=== PATIENT | female | born 1940 | race Caucasian/White ===

== ENCOUNTER → 2019-07-29 11:07 | Outpatient (BNVA) | payer MEDICARE, MEDICAID, SELFPAY | PROVIDERS: Family Provider Family Medicine; PCP Family Medicine; Visit Provider Internal Medicine Rheumatology | DX: M05.79 Rheumatoid arthritis with rheumatoid factor of multiple sites without organ or systems involvement (principal); Z79.899 Other long term (current) drug therapy; Z11.59 Encounter for screening for other viral diseases; Z11.1 Encounter for screening for respiratory tuberculosis; Z72.89 Other problems related to lifestyle | CPT/HCPCS: 36415; 80076; 82565; 85025; 85651; 86140; 86480; 86704; 86803; 87340 ==

== ENCOUNTER → 2019-07-29 11:37 | Outpatient (BNVA) | payer MEDICARE, MEDICAID, SELFPAY | PROVIDERS: Family Provider Family Medicine; PCP Family Medicine | DX: M05.79 Rheumatoid arthritis with rheumatoid factor of multiple sites without organ or systems involvement (principal); Z79.899 Other long term (current) drug therapy | CPT/HCPCS: 85025 ==

== ENCOUNTER 2019-09-24 11:12 | Outpatient (CLI) | payer MEDICARE, MEDICAID, SELFPAY ==
--- NOTE | 2019-09-24 11:46 | XR_ITS ---
WS: [id number] PROCEDURE: XR chest 2V* [id number] CLINICAL INFORMATION: POSITIVE TB TEST, NONSPECIFIC REACTION TO TUBERCULIN SKIN TE COMPARISON: March 08, 2015 FINDINGS: Heart: Cardiomegaly. Aortic calcification. Lungs: Moderate chronic emphysematous changes. No acute pulmonary infiltrates. No focal pneumonia. Bones: Advanced thoracic kyphosis with disc space narrowing in the mid thoracic spine. Thoracolumbar scoliosis. XR/XR chest 2V* [id number] IMPRESSION: 1. Advanced chronic emphysematous changes. No acute pulmonary infiltrates. 2. Thoracolumbar scoliosis with kyphosis. 3. Stable cardiomegaly.
== END 2019-09-24 11:13 | disposition home or self-care (01) ==
LOC: RADWPI 11:19
PROVIDERS: Family Provider Family Medicine; PCP Family Medicine; Visit Provider Family Medicine
DX: R76.11 Nonspecific reaction to tuberculin skin test without active tuberculosis (principal); J43.8 Other emphysema; I51.7 Cardiomegaly; M40.295 Other kyphosis, thoracolumbar region
CPT/HCPCS: 71046

== ENCOUNTER → 2019-12-09 09:53 | Outpatient (BNVA) | payer MEDICARE, MEDICAID, SELFPAY | PROVIDERS: Family Provider Family Medicine; PCP Family Medicine; Visit Provider Internal Medicine | DX: M06.9 Rheumatoid arthritis, unspecified (principal); M81.0 Age-related osteoporosis without current pathological fracture; M85.80 Other specified disorders of bone density and structure, unspecified site | CPT/HCPCS: 99213 ==

== ENCOUNTER → 2020-05-22 13:20 | Outpatient (BNVA) | payer MEDICARE, MEDICAID, SELFPAY | PROVIDERS: Family Provider Family Medicine; PCP Family Medicine; Visit Provider Internal Medicine | DX: M05.79 Rheumatoid arthritis with rheumatoid factor of multiple sites without organ or systems involvement (principal); M81.0 Age-related osteoporosis without current pathological fracture; Z22.7 Latent tuberculosis; Z87.891 Personal history of nicotine dependence | CPT/HCPCS: 99213; 99214 ==

== ENCOUNTER → 2020-12-19 09:38 | Outpatient (BNVA) | payer MEDICARE, MEDICAID, SELFPAY | PROVIDERS: Family Provider Family Medicine; PCP Family Medicine; Visit Provider Internal Medicine | DX: M06.9 Rheumatoid arthritis, unspecified (principal); M81.0 Age-related osteoporosis without current pathological fracture; R76.12 Nonspecific reaction to cell mediated immunity measurement of gamma interferon antigen response without active tuberculosis; M20.10 Hallux valgus (acquired), unspecified foot; Z87.891 Personal history of nicotine dependence | CPT/HCPCS: 99213; 99214 ==

== ENCOUNTER → 2021-02-04 13:03 | Outpatient (BNVA) | payer MEDICARE, MEDICAID, SELFPAY | PROVIDERS: Family Provider Family Medicine; PCP Family Medicine; Visit Provider Nurse Practitioner Family | DX: N39.0 Urinary tract infection, site not specified (principal) | CPT/HCPCS: 81000; 87077; 87086; 87184 ==

== ENCOUNTER → 2021-04-05 00:01 | Outpatient (BNVA) | payer MEDICARE, MEDICAID, SELFPAY | PROVIDERS: Family Provider Family Medicine; PCP Family Medicine; Visit Provider Emergency Medicine | DX: L03.90 Cellulitis, unspecified (principal) | CPT/HCPCS: 80048; 84550 ==

== ENCOUNTER → 2021-05-01 09:45 | Outpatient (BNVA) | payer MEDICARE, MEDICAID, SELFPAY | PROVIDERS: Family Provider Family Medicine; PCP Family Medicine; Visit Provider Internal Medicine | DX: M05.9 Rheumatoid arthritis with rheumatoid factor, unspecified (principal); M81.0 Age-related osteoporosis without current pathological fracture; R76.12 Nonspecific reaction to cell mediated immunity measurement of gamma interferon antigen response without active tuberculosis; Z79.899 Other long term (current) drug therapy; Z79.1 Long term (current) use of non-steroidal anti-inflammatories (NSAID); Z87.891 Personal history of nicotine dependence | CPT/HCPCS: 99213; 99214 ==

== ENCOUNTER 2021-05-12 11:44 | Emergency (ER) | payer MEDICARE, MEDICAID, SELFPAY ==
[2021-05-12 11:58] VITALS: BP 130/63; PULSE 95; RESP 16; TEMP 37.2; O2SAT 94
--- NOTE | 2021-05-12 12:02 | ED_ITS ---
HPI - URI/Sore Throat General: Chief Complaint: Upper Respiratory Infection Stated Complaint: sore throat; congestion; doesn't feel well Time Seen by Provider: 05/12/21 12:02 History of Present Illness: HPI Narrative: Ms Finn is an 81-year-old lady with history of rheumatoid arthritis and reported history of TB s/p completed treatment who presents to the emergency department due to congestion, cough, and generalized malaise. She reports over the past 6 months she has had recurrent episodes of similar symptoms. She endorses 3-week history of sinus pressure, nasal congestion, sore throat, and dry cough. She has mild associated generalized malaise. No associated fevers, chest pain, shortness of breath. Overall the course of symptoms has persisted and is mildly worsening. She received medications in [place] 2 days ago though she is unsure of what they were and she is felt improved. No other significant changes in health, exacerbating, relieving factors identified. Review of Systems General: Reports: 10 or more systems reviewed and unremarkable except in HPI and below PFSH ED PFSH: Medical History Hypothyroidism Immunosuppression Osteoporosis Rheumatoid arthritis Family History Mother Diabetes Sister Lung disease Rheumatoid arthritis Daughter Chronic kidney disease (CKD) Social History Smoking and tobacco status: former smoker Alcohol intake: former History of recent travel: No Physical Exam Narrative: EXAM NARRATIVE: GENERAL/CONSTITUTIONAL - mildly ill-appearing. Eyes - PERRL, no conjunctival injection ENMT - Sinuses TTP. Atraumatic external nose and ears. Normal pharynx NECK - supple. trachea midline CARDIOVASCULAR - regular rate and rhythm. Peripheral pulses 2+ and equal RESPIRATORY -clear to auscultation bilaterally. No retractions or accessory muscle use. ABDOMEN/GI - Nontender/Nondistended. MSK - Extremities without obvious deformity or tenderness to palpation. Right forearm cast, distal CMS intact. SKIN - Warm, Dry NEURO - alert and appropriately oriented. Moves all extremities equally. Course ED course: - Patient was seen and evaluated by me at bedside - Patient placed on cardiac monitors, IV access obtained - Initial evaluation notable for exam as above -Symptom treatments, as appropriate, ordered - Labs notable for leukocytosis, mild thrombocytosis. Metabolic panel with minimal hypokalemia, oral replenishment ordered. - Imaging notable for no acute finding - Upon serial reexamination after treatment the patient was mildly improved - Based on patient history, evaluation, labs, and imaging as interpreted the most likely cause of the patient's condition is bacterial sinus. - The results of ED evaluation were discussed with the patient including prescriptions and/or symptomatic cares (if applicable) including appropriate and responsible use, followup plan, and return precautions. The patient verbalized understanding and felt safe for discharge. - Patient discharged in satisfactory condition. Vital Signs: Vital signs: Vital Signs Temperature 97.7 F 05/12/21 13:32 Pulse Rate 85 05/12/21 13:32 Respiratory Rate 16 05/12/21 13:32 Blood Pressure 128/81 05/12/21 13:32 Pulse Oximetry 94 05/12/21 13:32 MDM - URI/Sore Throat Medical Records: Attestation: I reviewed the patient's medical records. Lab Data: Attestation: I reviewed the patient's lab results. Labs: Lab Results 05/12/21 12:20 SARS-CoV-2 Ag (Rap id) Negative (Negative) Discharge Plan Discharge Patient Disposition: Home Clinical Impression: Bacterial sinusitis Condition: Stable Prescriptions: No Action bupropion HCl 150 mg tablet extended release 24 hr 150 mg PO QAM RF: 0 glipizide 10 mg tablet 10 mg PO DAILY RF: 0 valsartan [Diovan] 80 mg tablet 80 mg PO DAILY RF: 0 lovastatin 20 mg tablet 20 mg PO DAILY RF: 0 furosemide [Lasix] 20 mg tablet 20 mg PO DAILY RF: 0 loratadine 10 mg tablet 10 mg PO DAILY RF: 0 diclofenac sodium [Voltaren] 1 % gel 2 gm TOPICAL QID Qty: 100 RF: 2 diclofenac sodium [Voltaren] 1 % gel 2 g topical QID Qty: 100 RF: 0 nitrofurantoin macrocrystal 100 mg capsule 100 mg PO BID 7 Days Qty: 14 RF: 0 cephalexin 500 mg capsule 500 mg PO BID RF: 0 cefdinir 300 mg capsule 300 mg PO BID RF: 0 montelukast 10 mg tablet 10 mg PO DAILY RF: 0 prednisone 20 mg tablet 20 mg PO DAILY 5 Days Qty: 5 RF: 0 allopurinol 100 mg tablet 100 mg PO BID Qty: 60 RF: 1 Discharge Orders: Discharge ED (Routine); Ordered 05/12/21 Ordered By: Timoteo Ashley Referrals: Karin Blackwell MD [Primary Care Provider] - Discharge Diet: Usual diet Discharge Activity: Resume usual activity Patient Instructions: Sinusitis (ED) Activity Restrictions/Additional Instructions: Thank you for visiting the emergency department. You were seen and evaluated for congestion, cough, and generalized malaise. The exact cause of your symptoms is unclear though is likely related to a sinusitis. Given duration of symptoms this is likely bacterial. I am unsure of what your previous physician prescribed you and therefore you should stop taking this if it was an antibiotic and start taking the antibiotic I will prescribe. Please follow-up with your primary care provider. Return to the emergency department for worsening symptoms, inability to tolerate oral intake, chest pain, shortness of breath, or anything else that you are concerned about and feel needs emergency department evaluation. Coding Level of Care Code ED [employer]ner for Mack Cabrera
--- NOTE | 2021-05-12 12:08 | XRR_ITS ---
PROCEDURE INFORMATION: Exam: XR Chest Exam date and time: 05/12/2021 12:08 PM Age: 81 years old Clinical indication: Cough TECHNIQUE: Imaging protocol: XR of the chest. Views: 1 view. COMPARISON: CR XR chest 2V* [id number] 09/24/2019 11:56 AM FINDINGS: Lungs: Unremarkable. No consolidation. Pleural spaces: Unremarkable. No pleural effusion. No pneumothorax. Heart/Mediastinum: Unremarkable. No cardiomegaly. Bones/joints: Unremarkable. XR/XR chest 1V portable [id number] IMPRESSION: No acute findings.
[2021-05-12 12:44] LABS: SARS Covid-2 Antigen Negative (Negative)
[2021-05-12] MEDS: amoxicillin-clav 875-125 mg Tablet 1 TAB PO (13:30)
[2021-05-12 13:32] VITALS: BP 128/81; PULSE 85; RESP 16; TEMP 36.5; O2SAT 94
--- NOTE | 2021-05-12 13:37 | PC.NURSE ---
discharged pt to home with son, pt verbalizes understanding of discharge instructions, prescriptions, 1 take home pill and when to follow up, pt ambulated from ED
== END 2021-05-12 13:39 | disposition home or self-care (01) ==
PROVIDERS: Emergency Provider Emergency Medicine; PCP Family Medicine
DX: J32.8 Other chronic sinusitis (principal); Z87.891 Personal history of nicotine dependence; Z20.822 Contact with and (suspected) exposure to COVID-19
CPT/HCPCS: 71045; 87426; 99283

== ENCOUNTER 2021-05-16 12:05 | Emergency (ER) | payer MEDICARE, MEDICAID, SELFPAY ==
[2021-05-16 12:20] VITALS: BP 133/63; PULSE 82; RESP 22; TEMP 36.7; O2SAT 96; BMI 26.6
[2021-05-16 14:30] LABS: Basophils # 0.1 10^3/uL (0.0-0.1); Basophils % 0.7 %; Eosinophils % 6.7 %; Hematocrit 40.9 % (37.0-47.0); Hemoglobin 12.5 g/dL (11.5-15.3); Lymphocytes # 3.6 10^3/uL (0.8-4.8); Lymphocytes % 24.6 %; Mean Corpuscular HGB Conc 30.6 g/dL (30.0-36.0); Mean Corpuscular Hemoglobin 28.7 pg (28.0-34.0); Mean Corpuscular Volume 93.8 fl (81-99); Mean Platelet Volume 9.9 fL (7.4-10.4); Monocytes # 0.8 10^3/uL (0.2-0.9); Monocytes % 5.7 %; Neutrophils # 8.94 10^3/uL (1.8-7.7); Neutrophils % 61.9 %; Nucleated Red Blood Cells % 0 %; Platelet Count 517 10^3/cmm (130-400); Red Blood Count 4.36 10^6/uL (4.1-5.3); Red Cell Distribution Width 14.5 % (12.1-15.1); White Blood Count 14.5 10^3/uL (4.0-10.0)
[2021-05-16 14:50] LABS: Alanine Aminotransferase < 5 U/L (0-33); Albumin Level 3.9 g/dL (3.5-5.2); Alkaline Phosphatase 106 IU/L (35-105); Anion Gap 15.4 (5-19); Aspartate Amino Transferase 13 U/L (0-32); Blood Urea Nitrogen 14 mg/dL (8-23); C Reactive Protein 87.7 mg/L (0.0-4.9); Calcium 9.1 mg/dL (8.5-10.5); Carbon Dioxide 27 mmol/L (22-29); Chloride 100 mmol/L (98-107); Globulin 3.7 g/dL (1.3-4.6); Glucose 95 mg/dL (65-115); Osmolality Calculated 288 mOsm/kg (285-295); Potassium 3.4 mmol/L (3.5-5.1); Sodium 139 mmol/L (136-145); Total Bilirubin 0.2 mg/dL (0.15-1.2); Total Protein 7.6 g/dL (6.6-8.7)
[2021-05-16] MEDS: acetaminophen 500 mg Tablet 1000 MG PO (15:08)
--- NOTE | 2021-05-16 15:12 | PC.NURSE ---
patient given PO tylenol for pain. Registration told per family patient leaving and she doesnt want the head ct , so were just going to go.
== END 2021-05-16 15:10 | disposition left against medical advice (07) ==
PROVIDERS: Physician Assistant; Emergency Provider Family Medicine; PCP Family Medicine
DX: Z53.21 Procedure and treatment not carried out due to patient leaving prior to being seen by health care provider (principal)
CPT/HCPCS: 80053; 85025; 86140; 87040

== ENCOUNTER 2021-06-05 15:08 | Outpatient (CLI) | payer MEDICARE, MEDICAID, SELFPAY ==
--- NOTE | 2021-06-05 15:45 | XR_ITS ---
WS: [id number] SCREENING DEXA SCAN [employer] CLINICAL INFORMATION: M81.0 - Age-related osteoporosis without current patholog... COMPARISON: 2017 FINDINGS: The L1-L4 bone mineral density measures 1.062 g/cm2. This corresponds to a T score score of -1.0 and Z score of 1.0. Left femoral neck bone mineral density measures 0.802 g/cm2. This corresponds to a T score of -1.6 an d Z score of 0.6. Right femoral neck bone mineral density measures 0.777 g/cm2. This corresponds to a T score -1.8of an d Z score of 0.4. Mean femoral neck bone mineral density measures 0.789 g/cm2. This corresponds to a T score of -1.7 an d Z score of 0.5. XR/XR DEXA axial skeleton* [id number] IMPRESSION: Osteopenia lumbar spine. Osteopenia in the femoral necks. Patient's FRAX calculated 10 year probability for major osteoporotic fracture i s 37.5 % and osteoporotic hip fracture is 15.4%.
== END 2021-06-05 15:09 | disposition home or self-care (01) ==
PROVIDERS: PCP Family Medicine; Visit Provider Internal Medicine
DX: M81.0 Age-related osteoporosis without current pathological fracture (principal); M06.9 Rheumatoid arthritis, unspecified; Z79.899 Other long term (current) drug therapy; M85.88 Other specified disorders of bone density and structure, other site; M85.851 Other specified disorders of bone density and structure, right thigh
CPT/HCPCS: 77080

== ENCOUNTER → 2021-06-13 17:11 | Outpatient (BNVA) | payer MEDICARE, MEDICAID, SELFPAY | PROVIDERS: PCP Family Medicine; Visit Provider Emergency Medicine | DX: E79.0 Hyperuricemia without signs of inflammatory arthritis and tophaceous disease (principal); R05.9 Cough, unspecified; R53.1 Weakness | CPT/HCPCS: 84550; 87635 ==

== ENCOUNTER → 2021-09-06 14:47 | Outpatient (BNVA) | payer MEDICARE, MEDICAID, SELFPAY | PROVIDERS: PCP Family Medicine; Visit Provider Emergency Medicine | DX: M06.9 Rheumatoid arthritis, unspecified (principal); N18.9 Chronic kidney disease, unspecified; Z79.899 Other long term (current) drug therapy; M10.9 Gout, unspecified; I12.9 Hypertensive chronic kidney disease with stage 1 through stage 4 chronic kidney disease, or unspecified chronic kidney disease | CPT/HCPCS: 80053; 84550; 85025 ==

== ENCOUNTER → 2021-11-13 09:59 | Outpatient (BNVA) | payer MEDICARE, MEDICAID, SELFPAY | PROVIDERS: PCP Family Medicine; Visit Provider Internal Medicine | DX: M05.79 Rheumatoid arthritis with rheumatoid factor of multiple sites without organ or systems involvement (principal); M1A.0710 Idiopathic chronic gout, right ankle and foot, without tophus (tophi); M81.0 Age-related osteoporosis without current pathological fracture; N18.9 Chronic kidney disease, unspecified | CPT/HCPCS: 99214 ==

== ENCOUNTER → 2021-12-06 16:35 | Outpatient (BNVA) | payer MEDICARE, MEDICAID, SELFPAY | PROVIDERS: PCP Family Medicine; Visit Provider Emergency Medicine | DX: R68.89 Other general symptoms and signs (principal); J11.1 Influenza due to unidentified influenza virus with other respiratory manifestations | CPT/HCPCS: 87071; 87400; 87635; 87880 ==

== ENCOUNTER → 2021-12-12 16:19 | Outpatient (BNVA) | payer MEDICARE, MEDICAID, SELFPAY | PROVIDERS: Referring Provider Family Medicine; Visit Provider Emergency Medicine | DX: J11.1 Influenza due to unidentified influenza virus with other respiratory manifestations (principal); J18.9 Pneumonia, unspecified organism | CPT/HCPCS: 71046 ==

== ENCOUNTER → 2022-01-09 12:39 | Outpatient (BNVA) | payer MEDICARE, MEDICAID, SELFPAY | PROVIDERS: Visit Provider Internal Medicine Cardiovascular Disease | DX: I25.2 Old myocardial infarction (principal); I12.9 Hypertensive chronic kidney disease with stage 1 through stage 4 chronic kidney disease, or unspecified chronic kidney disease; E11.22 Type 2 diabetes mellitus with diabetic chronic kidney disease; N18.9 Chronic kidney disease, unspecified; Z87.891 Personal history of nicotine dependence; Z79.84 Long term (current) use of oral hypoglycemic drugs | CPT/HCPCS: 99204 ==

== ENCOUNTER 2022-04-05 13:26 | Outpatient (CLI) | payer MEDICARE, MEDICAID, SELFPAY ==
--- NOTE | 2022-04-05 13:45 | USCV_ITS ---
Deann Finn Age: 81 Gender: F : 1940 Exam Date: 04/05/2022 13:44 Ordering Phys: Georgina Perrin MD ([email or web address]) Technologist: KRYSTA [place]am Location[place] [facility] [place] Indication: CHF, stress cardiomyopathy BP: 144 / 52 HR: 69 Rhythm: Sinus Technical Quality: Adequate MEASUREMENTS (Male / Female) Normal Values 2D ECHO LV Diastolic Diameter PLAX 5.6 cm 4.2 - 5.9 / 3.9 - 5.3 cm LV Systolic Diameter PLAX 4.2 cm IVS Diastolic Thickness 0.9 cm 0.6 - 1.0 / 0.6 - 0.9 cm IVS Systolic Thickness 0.9 cm LVPW Diastolic Thickness 0.7 cm 0.6 - 1.0 / 0.6 - 0.9 cm LVPW Systolic Thickness 1.0 cm LVOT Diameter 2.7 cm LV Ejection Fraction 2D Teich 47.7 % LA Diameter 3.1 cm M-MODE Aortic Annulus Diameter 2.6 cm LA Ao Ratio MM 1.4 MV E Point Septal Separation 0.8 cm DOPPLER AV Peak Velocity 118.0 cm/s LVOT Peak Velocity 93.0 cm/s AV Area Cont Eq vti 4.3 cm squared AV Area Cont Eq pk 4.6 cm squared MV Peak Velocity 93.0 cm/s MV Area PHT 4.4 cm squared Mitral E to A Ratio 0.6 MV E' Velocity 38.5 cm/s Mitral E to MV E' Ratio 10.8 Mitral E to LV E' Lateral Ratio 12.3 Mitral E to LV E' Septal Ratio 9.8 TR Peak Velocity 245.6 cm/s TR Peak Gradient 24.1 mmHg TR Mean Velocity 216.5 cm/s TR Mean Gradient 20.9 mmHg TR Velocity Time Integral 92.9 cm TV Peak E Velocity 41.0 cm/s Right Atrial Pressure 3.0 mmHg Pulmonary Artery Systolic Pressu 27.1 mmHg PV Peak Velocity 89.0 cm/s FINDINGS Left Ventricle Left ventricle is normal size. LV systolic function is mildly reduced with EF of 45 to 50%. Mild global hypokinesis. Grade 1 diastolic dysfunction Right Ventricle Normal in size and function normal size Right Atrium Normal in size Left Atrium Normal in size Mitral Valve Structurally normal mitral valve. Mild mitral regurgitation Aortic Valve Structurally normal aortic valve.No significant stenosis or regurgitation. Tricuspid Valve Mild tricuspid regurgitation. Pulmonary artery systolic pressure is normal Pulmonic Valve Not well-visualized Pericardium Normal Aorta Normal in size IVC Appears to be normal CONCLUSIONS LV systolic function is mildly reduced with EF of 45-50%. Mild global hypokinesis. Grade 1 diastolic dysfunction Mild mitral regurgitation Mild tricuspid regurgitation No comparison studies are available. Krish Fernandes MD (Electronically Signed) Final Date: 13 April 2022 12:45 S
== END 2022-04-05 13:27 | disposition home or self-care (01) ==
LOC: RAD 13:30
PROVIDERS: Visit Provider Internal Medicine Cardiovascular Disease
DX: I50.9 Heart failure, unspecified (principal); I08.1 Rheumatic disorders of both mitral and tricuspid valves
CPT/HCPCS: 93306

== ENCOUNTER → 2022-08-05 12:53 | Outpatient (BNVA) | payer MEDICARE, MEDICAID, SELFPAY | PROVIDERS: PCP Family Medicine; Visit Provider Nurse Practitioner Family | DX: I12.9 Hypertensive chronic kidney disease with stage 1 through stage 4 chronic kidney disease, or unspecified chronic kidney disease (principal); E11.22 Type 2 diabetes mellitus with diabetic chronic kidney disease; N18.9 Chronic kidney disease, unspecified; I25.2 Old myocardial infarction; R00.1 Bradycardia, unspecified; Z87.891 Personal history of nicotine dependence | CPT/HCPCS: 93005; 99213 ==

== ENCOUNTER → 2022-12-02 14:00 | Outpatient (BNVA) | payer MEDICARE, MEDICAID, SELFPAY | PROVIDERS: PCP Family Medicine; Visit Provider Nurse Practitioner Family | DX: I12.9 Hypertensive chronic kidney disease with stage 1 through stage 4 chronic kidney disease, or unspecified chronic kidney disease (principal); E11.22 Type 2 diabetes mellitus with diabetic chronic kidney disease; N18.9 Chronic kidney disease, unspecified; Z87.891 Personal history of nicotine dependence; Z79.84 Long term (current) use of oral hypoglycemic drugs | CPT/HCPCS: 99214 ==

== ENCOUNTER → 2023-03-11 14:51 | Outpatient (BNVA) | payer MEDICARE, MEDICAID, SELFPAY | PROVIDERS: PCP Family Medicine; Visit Provider Internal Medicine Cardiovascular Disease | DX: I13.0 Hypertensive heart and chronic kidney disease with heart failure and stage 1 through stage 4 chronic kidney disease, or unspecified chronic kidney disease (principal); E11.22 Type 2 diabetes mellitus with diabetic chronic kidney disease; N18.9 Chronic kidney disease, unspecified; I50.9 Heart failure, unspecified; Z87.891 Personal history of nicotine dependence; Z79.84 Long term (current) use of oral hypoglycemic drugs | CPT/HCPCS: 99214 ==

== ENCOUNTER → 2023-08-04 14:53 | Outpatient (BNVA) | payer MEDICARE, MEDICAID, SELFPAY | PROVIDERS: Visit Provider Dermatology | DX: D48.5 Neoplasm of uncertain behavior of skin (principal); L72.0 Epidermal cyst; I78.8 Other diseases of capillaries; L82.1 Other seborrheic keratosis; R20.2 Paresthesia of skin | CPT/HCPCS: 11102; 99203 ==

== ENCOUNTER → 2023-09-15 10:48 | Outpatient (BNVA) | payer MEDICARE, MEDICAID, SELFPAY | PROVIDERS: Visit Provider Nurse Practitioner Family | DX: I13.0 Hypertensive heart and chronic kidney disease with heart failure and stage 1 through stage 4 chronic kidney disease, or unspecified chronic kidney disease (principal); E11.22 Type 2 diabetes mellitus with diabetic chronic kidney disease; I50.42 Chronic combined systolic (congestive) and diastolic (congestive) heart failure; N18.9 Chronic kidney disease, unspecified; Z87.891 Personal history of nicotine dependence | CPT/HCPCS: 99214 ==

== ENCOUNTER → 2023-09-16 09:00 | Outpatient (BNVA) | payer MEDICARE, MEDICAID, SELFPAY | PROVIDERS: Visit Provider Dermatology | DX: C44.319 Basal cell carcinoma of skin of other parts of face (principal) | CPT/HCPCS: 17280 ==

== ENCOUNTER → 2023-11-04 13:06 | Outpatient (CLI) | payer MEDICARE, MEDICAID, SELFPAY ==
--- NOTE | 2023-11-04 13:11 | XR_ITS ---
WS: [id number] SCREENING DEXA SCAN [employer] CLINICAL INFORMATION: ASYMPTOMATIC MENOPAUSAL STATE COMPARISON: 2021 FINDINGS: The L1-L4 bone mineral density measures 1.067 g/cm2. This corresponds to a T score score of -0.9 and Z score of 0.9. Left femoral neck bone mineral density measures 0.763 g/cm2. This corresponds to a T score of -1.9 an d Z score of 0.3. Right femoral neck bone mineral density measures 0.694 g/cm2. This corresponds to a T score -2.5of an d Z score of -0.2. Mean femoral neck bone mineral density measures 0.729 g/cm2. This corresponds to a T score of -2.2 an d Z score of 0.0. XR/XR DEXA axial skeleton* [id number] IMPRESSION: Normal bone mineralization lumbar spine. Osteopenia femoral necks Patient's FRAX calculated 10 year probability for major osteoporotic fracture i s 30.0% and osteoporotic hip fracture is 11.0%. Bone mineral density lumbar spine increased 0.5% Bone mineral density femoral necks decreased -7.6%
== END | disposition home or self-care (01) ==
LOC: RAD 13:05
PROVIDERS: Referring Provider Surgery; Visit Provider Surgery
DX: Z78.0 Asymptomatic menopausal state (principal); M85.88 Other specified disorders of bone density and structure, other site
CPT/HCPCS: 77080

== ENCOUNTER → 2023-12-22 13:45 | Outpatient (BNVA) | payer MEDICARE, MEDICAID, SELFPAY | PROVIDERS: Visit Provider Podiatrist Foot & Ankle Surgery | DX: M79.672 Pain in left foot (principal); E11.69 Type 2 diabetes mellitus with other specified complication; L60.8 Other nail disorders | CPT/HCPCS: 73630; 99203 ==

== ENCOUNTER 2023-12-31 10:46 | Emergency (ER) | payer MEDICARE, MEDICAID, SELFPAY ==
[2023-12-31 10:48] VITALS: BP 173/73; PULSE 77; TEMP 36.8; O2SAT 95
--- NOTE | 2023-12-31 10:48 | ED_ITS ---
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 She does not recall but cannot specifically tell me whether or not there was loss of consciousness. No vomiting. She has a splint on the left wrist family states she has previously fractured that wrist in the past. Associated symptoms-after fall: Denies abdominal pain, chest pain or neck pain Related Data Home Medications Medication Instructions Recorded Confirmed lovastatin 20 mg tablet 20 mg PO DAILY 12/09/19 12/31/23 montelukast 10 mg tablet 10 mg PO DAILY 04/05/21 12/31/23 aspirin 81 mg tablet,delayed 81 mg PO DAILY 11/13/21 12/31/23 release cholecalciferol (vitamin D3) 50 50 mcg PO DAILY 01/09/22 12/31/23 mcg (2,000 unit) capsule pantoprazole 40 mg tablet,delayed 40 mg PO DAILY 01/09/22 12/31/23 release azelastine 137 mcg (0.1 %) nasal 2 spray intranasal BID PRN 08/05/22 12/31/23 spray ALLERGIES ferrous sulfate 325 mg (65 mg 325 mg PO DAILY 08/05/22 12/31/23 iron) tablet allopurinol 100 mg tablet 100 mg PO BID 12/02/22 12/31/23 cetirizine 10 mg tablet 10 mg PO DAILY 12/02/22 12/31/23 docusate sodium 100 mg capsule 100 mg PO BID 12/02/22 12/31/23 letrozole 2.5 mg tablet 2.5 mg PO DAILY 12/02/22 12/31/23 lorazepam 0.5 mg tablet 0.5 mg PO Q6H PRN Anxiety 12/02/22 12/31/23 acetaminophen 500 mg tablet 1,000 mg PO Q6H PRN PAIN OR 12/31/23 12/31/23 ELEVATED TEMP albuterol sulfate 2.5 mg/3 mL 2.5 mg inhalation Q4H PRN 12/31/23 12/31/23 (0.083 %) solution for nebulization Shortness Of Breath Or Wheezing bupropion HCl 300 mg 24 hr tablet, 300 mg PO QAM 12/31/23 12/31/23 extended release carboxymethyl 0.5 %-glycerin 1 1 drp ophthalmic (eye) DAILY PRN 12/31/23 12/31/23 %-polysorb 80 0.5 %-PF eye Dry Eyes dropperette (Refresh Digital PF) dextromethorphan 5 mg-guaifenesin 20 ml PO Q4H PRN COUGH/CONGESTION 12/31/23 12/31/23 50 mg/5 mL oral liquid (Robafen DM) magnesium glycinate 100 mg (as 200 mg PO BID 12/31/23 12/31/23 glycinate) tablet urea-lactic acid-propylene glycol See Rx Instructions .Route .COMPLEX 12/31/23 12/31/23 topical solution (Kerasal Fungal Nail Renewal topical solution) Previous Rx's Medication Instructions Recorded nebulizers #1 ea 12/12/21 amlodipine 2.5 mg tablet 2.5 mg PO DAILY #90 tabs 12/02/22 furosemide 20 mg tablet 20 mg PO DAILY PRN edema #90 tabs 12/02/22 hydrocodone 5 mg-acetaminophen 325 1 tab PO Q6H PRN pain #15 tabs 12/31/23 mg tablet Allergies Allergy/AdvReac Type Severity Reaction Status Date / Time cephalexin [From Keflex] Allergy Unknown unknowm Verified 12/31/23 10:58 ciprofloxacin [From Cipro] Allergy Unknown unknown Verified 12/31/23 10:58 sulfabenzamide Allergy Unknown Unknown Verified 12/31/23 10:58 erythromycin base Allergy ALGY-Rash Verified 12/31/23 10:58 sulfamethoxazole Allergy ALGY-Rash Verified 12/31/23 10:58 [From Bactrim] trimethoprim [From Bactrim] Allergy ALGY-Rash Verified 12/31/23 10:58 Review of Systems 2 Const: Denies: fever(s) or chills Card: Denies: chest pain Resp: Denies: dyspnea GI: Denies: abdominal pain : Denies: dysuria, urinary frequency or urinary urgency Musc: Denies: neck pain or back pain Skin/Breast: Denies: rash PFSH ED 2 PFSH: Medical History CHF (congestive heart failure), NYHA class III Osteopenia Type 2 diabetes mellitus without complication Thyroid cancer Gout Hypertension CKD (chronic kidney disease) High risk medication use Immunosuppression Hypothyroidism Osteoporosis Rheumatoid arthritis Surgical History S/P cholecystectomy S/P lumpectomy, left breast Family History Mother Diabetes Sister Lung disease Rheumatoid arthritis Daughter Chronic kidney disease (CKD) Social History Smoking and tobacco/nicotine status: former use of tobacco/nicotine Quit status (tobacco/nicotine): has quit using Year quit tobacco: 1991 Alcohol intake: former Substance/Drug Use: never Physical Exam 2 Const: COMMON NORMALS: no acute distress GENERAL APPEARANCE: cooperative and comfortable ORIENTATION/CONSCIOUSNESS: Yes awake HENMT: COMMON NORMALS: normocephalic, atraumatic and hearing grossly normal bilaterally HEAD & SCALP: normocephalic and atraumatic Resp: COMMON NORMALS: normal respiratory effort, No retractions, No use of accessory muscles and clear to auscultation bilaterally AUSCULTATION: clear to auscultation bilaterally Cardio: COMMON NORMALS: regular rate, regular rhythm and No murmurs present (Cardio) RATE: regular rate RHYTHM: regular rhythm GI: COMMON NORMALS: Soft to palpation and No hepatosplenomegaly present A USCULTATION: Yes normoactive bowel sounds PALPATION: Yes Soft to palpation, No Tenderness to palpation present (GI), No Guarding due to palpation present (GI) and Yes No hepatosplenomegaly present Extremity: COMMON NORMALS: normal to inspection, capillary refill normal, no clubbing, cyanosis or edema, no calf tenderness and no pedal edema Skin: COMMON NORMALS: no rashes or lesions noted GENERAL SKIN EXAM: no rashes or lesions noted Course 2 Vital Signs: Vital signs: Vital Signs Temperature 98.3 F 12/31/23 10:48 Pulse Rate 77 12/31/23 10:48 Blood Pressure 173/73 12/31/23 10:48 Pulse Oximetry 95 12/31/23 10:48 Oxygen Delivery Me thod Room Air 08/14/24 10:48 MDM - Fall Medical Decision Making X-ray shows ulnar styloid fracture and a nondisplaced distal radius fracture. She has multiple previous fractures as well that appear o Right elbow appear normal. Left forearm placed in a sugar-tong splint and sling. There were some rough areas at the edge of the splint on the volar surface of the fingers edge of the fiberglass was treated and then tape to protect rough edges from the skin. Will set up to see Ortho in a couple days in the office. We did check lab work on her she had reported that she fell after she stood up and walked in but I think the etiology of her fall was orthostatic she had been mildly anemic in the past actually improved today from what she has had in the past. She still has some chronic kidney disease but is at her baseline with no change. She is awake and alert ambulatory at this time feels capable of going home will discharge back to assisted living. Lab Data 12/31/23 12:35 12/31/23 12:35 Radiology Impressions Cervical Spine CT 12/31/23 10:53 IMPRESSION: No evidence of acute fracture or dislocation. Elbow X-Ray 12/31/23 10:53 Impression: There is no displaced fracture or dislocation If pain continues follow-up imaging in 7 to 10 days is recommended.. Wrist X-Ray 12/31/23 10:53 Impression: There is osteopenia Distal radial and ulnar fractures are noted. There is no dislocation. Head CT 12/31/23 10:54 IMPRESSION: 1. No evidence of intracranial hemorrhage or mass effect. 2. Tiny LEFT nasal bone fracture age-indeterminate. This may be chronic. Trace fluid LEFT maxillary sinus. 3. No acute intracranial findings. Laboratory Results WBC 8.85 10^3/uL (3.29-11.43) 12/31/23 12:35 RBC 3.97 10^6/uL (3.85-5.65) 12/31/23 12:35 Hgb 12.20 g/dL (11.27-16.99) 12/31/23 12:35 Hct 40.0 % (36-47) 12/31/23 12:35 MCV 100.8 fl (85-98) H 12/31/23 12:35 MCH 30.7 pg (27-33) 12/31/23 12:35 MCHC 30.5 g/dL (30-55) 12/31/23 12:35 RDW 14.1 % (12.1-15.1) 12/31/23 12:35 Plt Count 282 10^3/cmm (157-399) 12/31/23 12:35 MPV 10.0 fL (7.4-10.4) 12/31/23 12:35 Neut % (Auto) 56.4 % 12/31/23 12:35 Lymph % (Auto) 30.2 % 12/31/23 12:35 [place] % (Auto) 7.2 % 12/31/23 12:35 Eos % (Auto) 4.9 % 12/31/23 12:35 Baso % (Auto) 1.0 % 12/31/23 12:35 Neut # (Auto) 4.99 10^3/uL (1.8-7.7) 12/31/23 12:35 Lymph # (Auto) 2.7 10^3/uL (0.8-4.8) 12/31/23 12:35 [place] # (Auto) 0.6 10^3/uL (0.2-0.9) 12/31/23 12:35 Eos # (Auto) 0.4 10^3/uL (0.0-0.8) 12/31/23 12:35 Baso # (Auto) 0.1 10^3/uL (0.0-0.1) 12/31/23 12:35 Nucleated RBC % (auto) 0 % 12/31/23 12:35 Nucleated RBCs # 0.0 /100WBC 12/31/23 12:35 Sodium 140 mmol/L (136-145) 12/31/23 12:35 Potassium 4.9 mmol/L (3.5-5.1) 12/31/23 12:35 Chloride 102 mmol/L (98-107) 12/31/23 12:35 Carbon Dioxide 28 mmol/L (22-29) 12/31/23 12:35 Anion Gap 14.9 (5-19) 12/31/23 12:35 BUN 29 mg/dL (8-23) H 12/31/23 12:35 Creatinine 1.4 mg/dL (0.5-0.9) H 12/31/23 12:35 GFR Calculation Not Reportable 12/31/23 12:35 Glucose 124 mg/dL (65-115) H 12/31/23 12:35 Calculated Osmolality 297 mOsm/kg (285-295) H 12/31/23 12:35 Calcium 8.9 mg/dL (8.5-10.5) 12/31/23 12:35 Total Bilirubin 0.4 mg/dL (0.15-1.2) 12/31/23 12:35 AST 16 U/L (0-32) 12/31/23 12:35 ALT 9 U/L (0-33) 12/31/23 12:35 Alkaline Phosphatase 112 U/L (35-105) H 12/31/23 12:35 Total Protein 7.0 g/dL (6.6-8.7) 12/31/23 12:35 Albumin 4.1 g/dL (3.5-5.2) 12/31/23 12:35 Globulin 2.9 g/dL (1.3-4.6) 12/31/23 12:35 All radiology interpretation(s) finalized by discharge Discharge Plan Discharge Patient Disposition: Home Clinical Impression: Closed fracture distal radius and ulna Prescriptions: New hydrocodone-acetaminophen 5-325 mg tablet 1 tab PO Q6H PRN (Reason: pain) Qty: 15 0RF No Action lovastatin 20 mg tablet 20 mg PO DAILY montelukast 10 mg tablet 10 mg PO DAILY pantoprazole 40 mg tablet,delayed release (DR/EC) 40 mg PO DAILY cholecalciferol (vitamin D3) 50 mcg (2,000 unit) capsule 50 mcg PO DAILY aspirin 81 mg tablet,delayed release (DR/EC) 81 mg PO DAILY (DME) nebulizers [facility] [place] Rx Instructions .MEDSUPPLY Qty: 1 0RF Rx Instructions: As directed ferrous sulfate 325 mg (65 mg iron) tablet 325 mg PO DAILY azelastine 137 mcg (0.1 %) aerosol,spray 2 spray intranasal BID PRN (Reason: ALLERGIES) Rx Instructions: administer into each nostril allopurinol 100 mg tablet 100 mg PO BID letrozole 2.5 mg tablet 2.5 mg PO DAILY docusate sodium 100 mg capsule 100 mg PO BID cetirizine 10 mg tablet 10 mg PO DAILY lorazepam 0.5 mg tablet 0.5 mg PO Q6H PRN (Reason: Anxiety) amlodipine 2.5 mg tablet 2.5 mg PO DAILY Qty: 90 3RF furosemide 20 mg tablet 20 mg PO DAILY PRN (Reason: edema) Qty: 90 3RF acetaminophen 500 mg Tablet 1,000 mg PO Q6H PRN (Reason: PAIN OR ELEVATED TEMP) bupropion HCl 300 mg Tablet Extended Release 24 Hr 300 mg PO QAM magnesium glycinate 100 mg Tablet 200 mg PO BID Refresh Digital PF 0.5-1-0.5 % Dropperette 1 drp OPHTHALMIC (EYE) DAILY PRN (Reason: Dry Eyes) Robafen DM 5-50 mg/5 mL Liquid 20 ml PO Q4H PRN (Reason: COUGH/CONGESTION) Kerasal Fungal Nail Renewal Solution See Rx Instructions .ROUTE .COMPLEX Rx Instructions: APPLY TOPICALLY TO GREAT TOE NAIL DIRECTED PER PACKAGE INSTRUCTIONS ONE TIME DAILY. albuterol sulfate 2.5 mg /3 mL (0.083 %) solution for nebulization 2.5 mg inhalation Q4H PRN (Reason: Shortness Of Breath Or Wheezing) Discharge Orders: Discharge ED (Routine); Ordered 12/31/23 Ordered By: Obie Fink Discharge Diet: Usual diet Discharge Activity: Limit activity as instructed Patient Instructions: Opioid Safety, Pain Management Activity Restrictions/Additional Instructions: Thank you for choosing [facility] for your healthcare needs today. It is very important that you follow up as instructed or that you return to the Emergency Department should you have concerns or if your condition changes or worsens in any way. You received the emergency room after a fall. You have a nondisplaced fracture of the distal portion of your forearm bone. Leave the splint in place use the arm sling as needed to prevent swelling. shipping/receiving manager will make arrangements for you to follow-up with orthopedics. You can use the pain medicine as needed try to elevate your arm with the wrist above the elbow whenever you are able. Coding Level of Care Code ED Shank Sander for Mack Cabrera
--- NOTE | 2023-12-31 10:53 | CT_ITS ---
WS: [id number] CT CERVICAL TRAUMA TECHNIQUE: Noncontrast CT of the cervical spine with coronal and sagittal reformatted images. CLINICAL INFORMATION: trauma COMPARISON: None. DLP: 1621.[address] scans at [facility] use at least one of these dose optimization techniques: automated e xposure control; mA and/or kV adjustment per patient size (includes targeted exams where dose is matc hed to clinical indication); or iterative reconstruction. FINDINGS: Straightening of the normal cervical lordosis. Mild spondylitic changes. Mild cervical curve. Slight retrolisthesis C3 on C4. The space narrowing worse at C6-7. Normal craniocervical junction. Normal C1 -C2 articulation. Dens is normal in appearance. Normal occipital condyles. No high-grade spinal canal narrowing. Normal C1 ring. No evidence of acute fracture or dislocation. Chronic appearing anterior wedging at C4. Mild compression of the superior end plates of T1 and T2 likely chronic. Normal prevertebral soft tissues. Small calcified LEFT thyroid nodule. Lung apices are well aerated. Vascular calcification. Mastoids air cells are well aerated. CT/CT cervical spin wo con* [id number] IMPRESSION: No evidence of acute fracture or dislocation.
--- NOTE | 2023-12-31 10:53 | XR_ITS ---
WS: [id number] Examination: XR wrist LT min 3V* [id number] Reason for Exam: trauma Date: December 31, 2023 Comparison: None. Findings: The bone density is significantly diminished. There is a nondisplaced ulnar styloid fracture. There is a minimally displaced distal radial fracture . This appears to involve the radiocarpal joint. There is no dislocation. Significant degenerative changes of the wrist are noted particularly laterally XR/XR wrist LT min 3V* [id number] Impression: There is osteopenia Distal radial and ulnar fractures are noted. There is no dislocation.
--- NOTE | 2023-12-31 10:53 | XR_ITS ---
WS: [id number] Examination: XR elbow RT min 3V* [id number] Reason for Exam: trauma Date: December 31, 2023 Comparison: None. Findings: The bone density is diminished. There is no abnormal fat pad. There is no displaced fracture or dislocation XR/XR elbow RT min 3V* [id number] Impression: There is no displaced fracture or dislocation If pain continues follow-up imaging in 7 to 10 days is recommended..
--- NOTE | 2023-12-31 10:54 | CT_ITS ---
WS: [id number] CT HEAD TECHNIQUE: Noncontrast CT of the head obtained from the skullbase to the vertex. CLINICAL INFORMATION: trauma COMPARISON: None. DLP: 1621.[address] scans at [facility] use at least one of these dose optimization techniques: automated e xposure control; mA and/or kV adjustment per patient size (includes targeted exams where dose is matc hed to clinical indication); or iterative reconstruction. FINDINGS: No evidence of intracranial hemorrhage or mass effect. Ventricular system and basal cisterns are salas nt. Mild small vessel changes with moderate parenchymal volume loss. No extra-axial fluid collections . No evidence of mass or mass effect. Vascular calcification. Prominent perivascular spaces in the la teral basal ganglia. Paranasal sinuses and mastoid air cells are well aerated. Trace fluid LEFT maxillary sinus..Age-indet erminate tiny LEFT nasal bone fracture. Normal visualized soft tissues. CT/CT head wo con* [id number] IMPRESSION: 1. No evidence of intracranial hemorrhage or mass effect. 2. Tiny LEFT nasal bone fracture age-indeterminate. This may be chronic. Trace fluid LEFT maxillary sinus. 3. No acute intracranial findings.
--- NOTE | 2023-12-31 12:02 | PC.PHAR ---
Addendum entered by Meagan Cortez 12/31/23 12:35: [facility] [phone] Original Note: PT IS FROM [facility]
--- NOTE | 2023-12-31 12:22 | ECG_ITS ---
[facility] Test Date: 2023-12-31 Pat Name: Deann Finn Department: Room: Gender: Female Director New Product: : 1940 Requested By: Obie Wiley Order Number: [id number] Vic MD: Krish Fernandes M.D. Measurements Intervals [place] Rate: 73 P: 67 KS: 153 QRS: -22 QRSD: 100 T: 58 QT: 380 QTc: 419 Interpretive Statements SINUS RHYTHM WITH SINUS ARRHYTHMIA POSSIBLE ANTERIOR MYOCARDIAL INFARCTION , OF INDETERMINATE AGE [30 ms Q WAVE IN V3/V4, OR R < 0.2 mV IN V4] No previous ECG available for comparison Electronically Signed On 12-31-2023 13:17:48 CDT by Krish Fernandes M.D. [email or web address] Wirelesdelta regional medical centerReturnHaulerohio[facility].[employer]/store/[id number]
[2023-12-31 12:44] LABS: Basophils # 0.1 10^3/uL (0.0-0.1); Eosinophils # 0.4 10^3/uL (0.0-0.8); Eosinophils % 4.9 %; Lymphocytes # 2.7 10^3/uL (0.8-4.8); Lymphocytes % 30.2 %; Mean Corpuscular HGB Conc 30.5 g/dL (30-55); Mean Corpuscular Hemoglobin 30.7 pg (27-33); Mean Corpuscular Volume 100.8 fl (85-98); Monocytes # 0.6 10^3/uL (0.2-0.9); Monocytes % 7.2 %; Neutrophils # 4.99 10^3/uL (1.8-7.7); Neutrophils % 56.4 %; Nucleated Red Blood Cells % 0 %; Platelet Count 282 10^3/cmm (157-399); Red Blood Count 3.97 10^6/uL (3.85-5.65); Red Cell Distribution Width 14.1 % (12.1-15.1); White Blood Count 8.85 10^3/uL (3.29-11.43)
[2023-12-31 12:57] LABS: Alanine Aminotransferase 9 U/L (0-33); Albumin Level 4.1 g/dL (3.5-5.2); Alkaline Phosphatase 112 U/L (35-105); Anion Gap 14.9 (5-19); Aspartate Amino Transferase 16 U/L (0-32); Blood Urea Nitrogen 29 mg/dL (8-23); Calcium 8.9 mg/dL (8.5-10.5); Carbon Dioxide 28 mmol/L (22-29); Chloride 102 mmol/L (98-107); Globulin 2.9 g/dL (1.3-4.6); Glucose 124 mg/dL (65-115); Osmolality Calculated 297 mOsm/kg (285-295); Potassium 4.9 mmol/L (3.5-5.1); Sodium 140 mmol/L (136-145); Total Bilirubin 0.4 mg/dL (0.15-1.2)
[2023-12-31] MEDS: HYDROcodone-acetaminophen 5-325 mg Tablet 1 TAB PO (13:00)
--- NOTE | 2024-01-01 07:02 | DCPLANNER ---
messaged ortho for er f/u
== END 2023-12-31 14:10 | disposition home or self-care (01) ==
PROVIDERS: Emergency Provider Family Medicine
DX: S52.615A Nondisplaced fracture of left ulna styloid process, initial encounter for closed fracture (principal); S52.502A Unspecified fracture of the lower end of left radius, initial encounter for closed fracture; Z79.82 Long term (current) use of aspirin; I13.0 Hypertensive heart and chronic kidney disease with heart failure and stage 1 through stage 4 chronic kidney disease, or unspecified chronic kidney disease; E11.22 Type 2 diabetes mellitus with diabetic chronic kidney disease; N18.9 Chronic kidney disease, unspecified; I50.9 Heart failure, unspecified; Z85.850 Personal history of malignant neoplasm of thyroid; Z87.891 Personal history of nicotine dependence; W19.XXXA Unspecified fall, initial encounter
CPT/HCPCS: 36415; 70450; 72125; 73080; 73110; 80053; 85025; 93005; 99285

== ENCOUNTER → 2024-01-06 10:55 | Outpatient (BNVA) | payer MEDICARE, MEDICAID, SELFPAY | PROVIDERS: PCP Family Medicine; Visit Provider Student in an Organized Health Care Education/Training Program | DX: S52.502A Unspecified fracture of the lower end of left radius, initial encounter for closed fracture; S52.602A Unspecified fracture of lower end of left ulna, initial encounter for closed fracture; S69.92XA Unspecified injury of left wrist, hand and finger(s), initial encounter; W01.0XXA Fall on same level from slipping, tripping and stumbling without subsequent striking against object, initial encounter; Z46.89 Encounter for fitting and adjustment of other specified devices; S52.592D Other fractures of lower end of left radius, subsequent encounter for closed fracture with routine healing; S52.692D Other fracture of lower end of left ulna, subsequent encounter for closed fracture with routine healing; X58.XXXD Exposure to other specified factors, subsequent encounter | CPT/HCPCS: 25600; 73110; 99204 ==

== ENCOUNTER 2024-01-06 14:17 | Outpatient (CLI) | payer MEDICARE, MEDICAID, SELFPAY | END 2024-01-06 14:18 | disposition home or self-care (01) | LOC: SPT 14:18 | PROVIDERS: PCP Family Medicine; Visit Provider Student in an Organized Health Care Education/Training Program | DX: Z46.89 Encounter for fitting and adjustment of other specified devices (principal); S52.592D Other fractures of lower end of left radius, subsequent encounter for closed fracture with routine healing; S52.692D Other fracture of lower end of left ulna, subsequent encounter for closed fracture with routine healing; X58.XXXD Exposure to other specified factors, subsequent encounter | CPT/HCPCS: 97760; L3982 ==

== ENCOUNTER 2024-02-17 06:00 | Outpatient (CLI) | payer MEDICARE, MEDICAID, SELFPAY | END 2024-02-17 23:59 | disposition home or self-care (01) | LOC: SOT 02-19 11:55 | PROVIDERS: PCP Family Medicine; Visit Provider Student in an Organized Health Care Education/Training Program | DX: Z46.89 Encounter for fitting and adjustment of other specified devices (principal); S52.509D Unspecified fracture of the lower end of unspecified radius, subsequent encounter for closed fracture with routine healing; S52.609D Unspecified fracture of lower end of unspecified ulna, subsequent encounter for closed fracture with routine healing; X58.XXXD Exposure to other specified factors, subsequent encounter | CPT/HCPCS: 97760; L3906 ==

== ENCOUNTER → 2024-02-17 14:19 | Outpatient (BNVA) | payer MEDICARE, MEDICAID, SELFPAY | PROVIDERS: PCP Family Medicine; Visit Provider Student in an Organized Health Care Education/Training Program | DX: S52.502A Unspecified fracture of the lower end of left radius, initial encounter for closed fracture (principal); S52.602A Unspecified fracture of lower end of left ulna, initial encounter for closed fracture; X58.XXXA Exposure to other specified factors, initial encounter; Z46.89 Encounter for fitting and adjustment of other specified devices; S52.509D Unspecified fracture of the lower end of unspecified radius, subsequent encounter for closed fracture with routine healing; S52.609D Unspecified fracture of lower end of unspecified ulna, subsequent encounter for closed fracture with routine healing; X58.XXXD Exposure to other specified factors, subsequent encounter | CPT/HCPCS: 73110 ==

== ENCOUNTER → 2024-03-17 13:12 | Outpatient (BNVA) | payer MEDICARE, MEDICAID, SELFPAY | PROVIDERS: PCP Family Medicine; Visit Provider Nurse Practitioner Family | DX: L85.3 Xerosis cutis (principal); L72.0 Epidermal cyst; L57.0 Actinic keratosis; D48.5 Neoplasm of uncertain behavior of skin | CPT/HCPCS: 11102; 17000; 99213 ==

== ENCOUNTER → 2024-03-31 09:30 | Outpatient (BNVA) | payer MEDICARE, MEDICAID, SELFPAY | PROVIDERS: PCP Family Medicine; Visit Provider Nurse Practitioner Family | DX: I10 Essential (primary) hypertension (principal); I50.42 Chronic combined systolic (congestive) and diastolic (congestive) heart failure | CPT/HCPCS: 99214 ==

== ENCOUNTER → 2024-04-08 09:00 | Outpatient (BNVA) | payer MEDICARE, MEDICAID, SELFPAY | PROVIDERS: PCP Family Medicine; Visit Provider Dermatology | DX: D69.2 Other nonthrombocytopenic purpura (principal); L82.1 Other seborrheic keratosis; L81.4 Other melanin hyperpigmentation; C44.41 Basal cell carcinoma of skin of scalp and neck | CPT/HCPCS: 17271; 99213 ==

== ENCOUNTER → 2024-04-27 14:15 | Outpatient (BNVA) | payer MEDICARE, MEDICAID, SELFPAY | PROVIDERS: PCP Family Medicine; Visit Provider Student in an Organized Health Care Education/Training Program | DX: S52.501D Unspecified fracture of the lower end of right radius, subsequent encounter for closed fracture with routine healing; S52.601D Unspecified fracture of lower end of right ulna, subsequent encounter for closed fracture with routine healing; X58.XXXD Exposure to other specified factors, subsequent encounter | CPT/HCPCS: 73110; 99213 ==

== ENCOUNTER → 2024-04-29 11:44 | Outpatient (BNVA) | payer MEDICARE, MEDICAID, SELFPAY | PROVIDERS: PCP Family Medicine; Visit Provider Family Medicine | DX: E11.9 Type 2 diabetes mellitus without complications (principal); I50.42 Chronic combined systolic (congestive) and diastolic (congestive) heart failure; I10 Essential (primary) hypertension; N18.9 Chronic kidney disease, unspecified; M05.79 Rheumatoid arthritis with rheumatoid factor of multiple sites without organ or systems involvement; E78.2 Mixed hyperlipidemia; M1A.0710 Idiopathic chronic gout, right ankle and foot, without tophus (tophi); R76.12 Nonspecific reaction to cell mediated immunity measurement of gamma interferon antigen response without active tuberculosis | CPT/HCPCS: 80053; 83036; 84443; 85025 ==

== ENCOUNTER → 2024-05-27 14:34 | Outpatient (BNVA) | payer MEDICARE, MEDICAID, SELFPAY | PROVIDERS: PCP Family Medicine; Visit Provider Obstetrics & Gynecology | DX: N39.0 Urinary tract infection, site not specified (principal); R82.90 Unspecified abnormal findings in urine | CPT/HCPCS: 81000; 87077; 87086; 87184 ==

== ENCOUNTER → 2024-09-29 13:25 | Outpatient (BNVA) | payer MEDICARE, MEDICAID, SELFPAY | PROVIDERS: PCP Family Medicine; Visit Provider Internal Medicine | DX: I13.0 Hypertensive heart and chronic kidney disease with heart failure and stage 1 through stage 4 chronic kidney disease, or unspecified chronic kidney disease (principal); I50.42 Chronic combined systolic (congestive) and diastolic (congestive) heart failure; E11.22 Type 2 diabetes mellitus with diabetic chronic kidney disease; N18.32 Chronic kidney disease, stage 3b; M05.79 Rheumatoid arthritis with rheumatoid factor of multiple sites without organ or systems involvement; Z87.891 Personal history of nicotine dependence | CPT/HCPCS: 99213 ==

== ENCOUNTER → 2024-10-26 15:23 | Outpatient (BNVA) | payer MEDICARE, MEDICAID, SELFPAY | PROVIDERS: PCP Family Medicine; Visit Provider Dermatology | DX: D23.111 Other benign neoplasm of skin of right upper eyelid, including canthus (principal); L82.1 Other seborrheic keratosis; D69.2 Other nonthrombocytopenic purpura; L81.4 Other melanin hyperpigmentation; H01.133 Eczematous dermatitis of right eye, unspecified eyelid; Z08 Encounter for follow-up examination after completed treatment for malignant neoplasm; Z85.828 Personal history of other malignant neoplasm of skin | CPT/HCPCS: 99213 ==

== ENCOUNTER → 2024-11-11 14:23 | Outpatient (BNVA) | payer MEDICARE, MEDICAID, SELFPAY | PROVIDERS: PCP Family Medicine; Visit Provider Family Medicine | DX: E11.9 Type 2 diabetes mellitus without complications (principal); N39.0 Urinary tract infection, site not specified; E03.9 Hypothyroidism, unspecified; I10 Essential (primary) hypertension; E78.2 Mixed hyperlipidemia; N18.32 Chronic kidney disease, stage 3b | CPT/HCPCS: 80053; 80061; 83036; 84439; 84443 ==

== ENCOUNTER → 2025-02-03 10:15 | Outpatient (BNVA) | payer MEDICARE, MEDICAID, SELFPAY | PROVIDERS: PCP Family Medicine; Visit Provider Family Medicine | DX: N39.0 Urinary tract infection, site not specified (principal); E11.9 Type 2 diabetes mellitus without complications | CPT/HCPCS: 82043; 87086 ==

== ENCOUNTER → 2025-05-05 11:12 | Outpatient (BNVA) | payer MEDICARE, MEDICAID, SELFPAY | PROVIDERS: PCP Family Medicine; Visit Provider Family Medicine | DX: E11.9 Type 2 diabetes mellitus without complications (principal); I10 Essential (primary) hypertension; I50.42 Chronic combined systolic (congestive) and diastolic (congestive) heart failure; N18.32 Chronic kidney disease, stage 3b | CPT/HCPCS: 80053; 83036; 85025 ==